=== PATIENT | female | born 1950 | race Caucasian/White ===

== ENCOUNTER 2021-02-06 08:00 | Outpatient (CLI) | payer OTHER | END 2021-02-06 08:30 | disposition home or self-care (01) | LOC: PPH VACUNA 08:00 | PROVIDERS: ATTEND Emergency Medicine Pediatric Emergency Medicine | DX: Z23 Encounter for immunization (principal) ==

== ENCOUNTER 2022-11-18 09:16 | Outpatient (CLI) | payer OTHER | END 2022-11-18 09:20 | disposition home or self-care (01) | LOC: MAMO-SONO 09:16 | DX: Z12.31 Encounter for screening mammogram for malignant neoplasm of breast (principal) ==